=== PATIENT | male | born 1980 ===

== ENCOUNTER 2022-02-12 01:06 | Emergency (ER) | payer SELFPAY ==
[~2022-02-12] VITALS: Ht 167.6 cm; Wt 65.8 kg
[2022-02-12 02:36] LABS: Influenza A, PCR NEGATIVE (NEGATIVE); Influenza B, PCR NEGATIVE (NEGATIVE); Resp Syncytial Virus, PCR NEGATIVE (NEGATIVE); SARS-Cov-2 (COVID-19) PCR, MMC NEGATIVE (NEGATIVE)
[2022-02-12 05:02] LABS: BASOPHILS ABSOLUTE AUTO 0.11 K/mm3 (0.00-0.23); BASOPHILS PERCENT AUTO 1 % (0-2); EOSINOPHILS ABSOLUTE AUTO 0.12 K/mm3 (0.00-0.68); EOSINOPHILS PERCENT AUTO 1 % (0-6); Hematocrit 43.6 % (37.0-53.0); Hemoglobin 14.9 g/dL (13.5-17.5); IMMATURE GRAN ABSOLUTE AUTO 0.05 K/mm3 (0.00-0.10); IMMATURE GRAN PERCENT AUTO 0 % (0-1); LYMPHOCYTES ABSOLUTE AUTO 2.01 K/mm3 (0.84-5.20); LYMPHOCYTES PERCENT AUTO 16 % (21-46); MONOCYTES ABSOLUTE AUTO 1.09 K/mm3 (0.16-1.47); MONOCYTES PERCENT AUTO 9 % (4-13); Mean Corpuscular HGB 30.3 pg (26.0-34.0); Mean Corpuscular HGB Conc 34.2 g/dL (31.5-36.5); Mean Corpuscular Volume 89 fL (80-100); Mean Platelet Volume 10.6 fL (9.1-12.4); NEUTROPHILS ABSOLUTE AUTO 9.14 K/mm3 (1.96-9.15); NEUTROPHILS PERCENT AUTO 73 % (41-73); Platelet Count 192 K/mm3 (150-400); RDW Coefficient Variation 13.7 % (11.7-14.2); RDW Standard Deviation 44.1 fL (35.1-46.3); Red Blood Cell Count 4.91 M/mm3 (4.30-5.90); White Blood Cell Count 12.52 K/mm3 (4.00-11.30)
[2022-02-12 05:29] LABS: Albumin, Blood 2.9 g/dL (3.4-5.0); Albumin/Globulin Ratio 0.9 (0.8-1.8); Bilirubin, Total 2.2 mg/dL (0.1-1.0); Bun/Creatinine Ratio 17.1 (12.0-20.0); Creatinine, Blood 1.05 mg/dL (0.60-1.20); Globulin, Blood 3.1 g/dL (2.2-4.0); Potassium, Blood 4.6 mmol/L (3.5-5.5)
[2022-02-12] MEDS ORDERED: IBUP600 PO (05:49)
== END 2022-02-12 06:24 | disposition home or self-care (01) ==
LOC: ER 01:06
PROVIDERS: Student in an Organized Health Care Education/Training Program
DX: B34.9 Viral infection, unspecified (principal); R10.30 Lower abdominal pain, unspecified; D72.829 Elevated white blood cell count, unspecified; Z20.822 Contact with and (suspected) exposure to COVID-19
CPT/HCPCS: 0241U; 80053; 85025; A9270; J1885; J2405

== ENCOUNTER 2022-02-16 16:25 | Inpatient (IN) | payer OTHER ==
[~2022-02-16] VITALS: Ht 170.2 cm; Wt 79.1 kg
[~2022-02-16 16:25] MED LIST: IBUP600 PO
[2022-02-16 17:10] LABS: BASOPHILS ABSOLUTE AUTO 0.09 K/mm3 (0.00-0.23); BASOPHILS PERCENT AUTO 1 % (0-2); EOSINOPHILS ABSOLUTE AUTO 0.04 K/mm3 (0.00-0.68); EOSINOPHILS PERCENT AUTO 0 % (0-6); Hematocrit 46.4 % (37.0-53.0); Hemoglobin 15.9 g/dL (13.5-17.5); IMMATURE GRAN ABSOLUTE AUTO 0.05 K/mm3 (0.00-0.10); IMMATURE GRAN PERCENT AUTO 0 % (0-1); LYMPHOCYTES ABSOLUTE AUTO 1.04 K/mm3 (0.84-5.20); LYMPHOCYTES PERCENT AUTO 7 % (21-46); MONOCYTES PERCENT AUTO 7 % (4-13); Mean Corpuscular HGB 30.9 pg (26.0-34.0); Mean Corpuscular HGB Conc 34.3 g/dL (31.5-36.5); Mean Corpuscular Volume 90 fL (80-100); Mean Platelet Volume 10.5 fL (9.1-12.4); NEUTROPHILS ABSOLUTE AUTO 12.36 K/mm3 (1.96-9.15); NEUTROPHILS PERCENT AUTO 85 % (41-73); Platelet Count 221 K/mm3 (150-400); RDW Coefficient Variation 14.4 % (11.7-14.2); RDW Standard Deviation 47.2 fL (35.1-46.3); Red Blood Cell Count 5.15 M/mm3 (4.30-5.90); White Blood Cell Count 14.58 K/mm3 (4.00-11.30)
[2022-02-16 17:26] LABS: Source, Urine Clean Catch
[2022-02-16 17:30] LABS: Appearance, Urine Hazy (Clear); Blood, Urine 5+ (Neg); Color, Urine Brown (P-Yellow); Glucose Qualitative, Urine Neg (Neg); Ketones, Urine 2+ (Neg); Leukocyte Esterase, Urine 3+ (Neg); Nitrite, Urine Neg (Neg); Protein, Urine 3+ (Neg); Specific Gravity, Urine 1.025 (1.003-1.022); Urobilinogen, Urine 2+ (Normal)
[2022-02-16 17:40] LABS: Albumin, Blood 3.1 g/dL (3.4-5.0); Bilirubin, Total 3.1 mg/dL (0.1-1.0); Bun/Creatinine Ratio 19.6 (12.0-20.0); Calcium, Blood 8.8 mg/dL (8.5-10.1); Creatinine, Blood 1.07 mg/dL (0.60-1.20); Globulin, Blood 3.1 g/dL (2.2-4.0); Potassium, Blood 4.5 mmol/L (3.5-5.5); Total Protein, Blood 6.2 g/dL (6.4-8.2)
[2022-02-16 18:12] LABS: Bilirubin, Urine 1+ (Neg)
[2022-02-16 18:13] LABS: Bacteria Many /hpf; Granular Casts 0-2 /lpf (0); Mucus Light (0-Heavy); Red Blood Cells, Urine 25-50 /hpf (0-2); Squamous Epithelial Cells Rare /hpf (Few); White Blood Cells, Urine 25-50 /hpf (0-5)
--- NOTE | 2022-02-17 00:25 | NUR ---
RECEIVED REPORT FROM PEPITO DENG RN. PT ARRIVED TO 324 VIA GURNEY. PT TRANSFERRED SELF TO BED. ON 2L VIA SC. A/O. MOSTLY GERMAN SPEAKING, LIMITED NEPALI. PT ORIENTED TO CALL LT SYSTEM. BED ALARM ON FOR SAFETY. WILL CONTINUE TO PROVIDE CARE T/O SHIFT. CALL LT IN REACH.
[2022-02-17 00:26] LABS: U Amphetamine Screen DETECTED; U Barbituate Screen Not Detected; U Benzodiazapine Screen Not Detected; U Buprenorphine Screen Not Detected; U Cannabinoids Screen Not Detected; U Cocaine Screen Not Detected; U Methadone Screen Not Detected; U Methamphetamine Screen DETECTED; U Opiates Screen Not Detected; U Oxycodone Screen Not Detected; U Phencyclidine Screen Not Detected; U Propoxyphene Screen Not Detected
--- NOTE | 2022-02-17 00:45 | NUR ---
CIWA 0. PT DENIED SYMPTOMS.
[2022-02-17 02:19] LABS: BASOPHILS ABSOLUTE AUTO 0.07 K/mm3 (0.00-0.23); BASOPHILS PERCENT AUTO 1 % (0-2); EOSINOPHILS ABSOLUTE AUTO 0.02 K/mm3 (0.00-0.68); EOSINOPHILS PERCENT AUTO 0 % (0-6); Hematocrit 43.8 % (37.0-53.0); Hemoglobin 14.8 g/dL (13.5-17.5); IMMATURE GRAN ABSOLUTE AUTO 0.06 K/mm3 (0.00-0.10); IMMATURE GRAN PERCENT AUTO 0 % (0-1); LYMPHOCYTES ABSOLUTE AUTO 0.63 K/mm3 (0.84-5.20); LYMPHOCYTES PERCENT AUTO 4 % (21-46); MONOCYTES ABSOLUTE AUTO 1.04 K/mm3 (0.16-1.47); MONOCYTES PERCENT AUTO 7 % (4-13); Mean Corpuscular HGB 30.6 pg (26.0-34.0); Mean Corpuscular HGB Conc 33.8 g/dL (31.5-36.5); Mean Corpuscular Volume 91 fL (80-100); Mean Platelet Volume 10.3 fL (9.1-12.4); NEUTROPHILS ABSOLUTE AUTO 12.53 K/mm3 (1.96-9.15); NEUTROPHILS PERCENT AUTO 87 % (41-73); Platelet Count 194 K/mm3 (150-400); RDW Coefficient Variation 14.4 % (11.7-14.2); RDW Standard Deviation 46.8 fL (35.1-46.3); Red Blood Cell Count 4.84 M/mm3 (4.30-5.90); White Blood Cell Count 14.35 K/mm3 (4.00-11.30)
--- NOTE | 2022-02-17 02:34 | NUR ---
PT RESTING QUIETLY. RESP EVEN ON 2L. CALL LT IN REACH. BED ALARM ON FOR SAFETY.
[2022-02-17 02:39] LABS: Albumin, Blood 2.8 g/dL (3.4-5.0); Albumin/Globulin Ratio 0.9 (0.8-1.8); Bilirubin, Total 2.3 mg/dL (0.1-1.0); Bun/Creatinine Ratio 19.3 (12.0-20.0); Creatinine, Blood 0.98 mg/dL (0.60-1.20); Globulin, Blood 3.1 g/dL (2.2-4.0); Potassium, Blood 4.5 mmol/L (3.5-5.5); Total Protein, Blood 5.9 g/dL (6.4-8.2)
--- NOTE | 2022-02-17 03:52 | NUR ---
PT CONTINUES TO REST QUIETLY. LACTIC ACID IS 1.7. WILL CONTINUE TO PROVIDE CARE. CALL LT IN REACH.
--- NOTE | 2022-02-17 04:08 | NUR ---
SHIFT SUMMARY: ED ADMIT AT 0025. ALERT. MOSTLY CHINESE SPEAKING WITH VERY LIMITED PALESTINIAN. CURRENTLY ON 2L VIA NC. STACH AT 114 ON TELE. LACTIC ACID 1.7. NO COMPLAINTS OF PAIN OR SOB. PT RESTED WELL UPON ARRIVAL TO FLOOR. WILL CONTINUE TO PROVIDE CARE UNTIL SHIFT REPORT TO ONCOMING NURSE.
--- NOTE | 2022-02-17 06:08 | NUR ---
PT RESTING QUIETLY. CALL LT IN REACH.
--- NOTE | 2022-02-17 17:01 | NUR ---
SHIFT SUMMARY PT ECHO COMPLETED TODAY. IV FLUIDS DCED THIS SHIFT. PT TOLERATING PO INTAKE TODAY. USING URINAL AT BEDSIDE. SHOWERED TODAY. PT TELE REMAINS RUNNING SINUS TACH IN THE 110-120S T/O DAY. HR INCREASES WITH PAIN. PT IS PRIMARILY CUBAN SPEAKING AND OFTEN REFUSES PAIN OR NEEDS EVEN WITH A GRIMANCE ON FACE. PT AGREEABLE TO TAKING A DOSE A FENTANYL ONCE THIS SHIFT WITH GOOD RELIEF. PT CURRENTLY APPEARS TO BE SLEEPING IN HIS BED, FACE RELAXED. CALL LIGHT IN REACH.
--- NOTE | 2022-02-17 18:08 | NUR ---
PHYSICIAN CONTACT PT HR SUSTAINING IN THE 120S UP TO 130. DR. AQUINO NOTIFIED OF THIS INCREASE. NO NEW ORDERS AT THIS TIME.
--- NOTE | 2022-02-17 19:24 | NUR ---
RESTING QUIETLY. CALL LIGHT IN REACH
--- NOTE | 2022-02-17 19:46 | NUR ---
AWAKENED FOR ASSESSMENT. DENIES PAIN. HR ST AT 127. TELE CONSULTED. REPORTED THAT PT HAS BEEN ST INTO THE 130'S INTERMITTENTLY THROUGHOUT THE DAY, MD AWARE. WILL MONITOR. ASYMPTOMATIC. CALL LIGHT IN REACH
--- NOTE | 2022-02-18 00:04 | NUR ---
BAKED GOODS STOCK CLERK SUMMARY QUITE TIRED AT SHIFT COMMENCE. CIWA WAS 1 WITH INITIAL ASSESSMENT. DENIED PAIN AT THAT TIME. SPEAKS SOME MACEDONIAN. ANSWERS CORRESPONDED WITH QUESTIONS ASKED. MED TELE - ST IN 120'S - 130. AWARE PER AM RN, ASYMPTOMATIC. TELE REPORTED PT HAS HAD SIMILAR HR THROUGHOUT DAY. NEAR MIDNIGHT, PT AWAKE, VOICED ANXIETY. CIWA WAS 8, RECEIVED ATIVAN IV. 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 ABD PAIN SUBSIDED. CALL LIGHT IN REACH. WILL CONTINUE TO MONITOR.
--- NOTE | 2022-02-18 07:49 | NUR ---
DR PARISH PAGED PER ORDER FOR CONSULT. cONTINUE POC.
[2022-02-18 08:52] LABS: Hematocrit 46.7 % (37.0-53.0); Hemoglobin 15.1 g/dL (13.5-17.5); Mean Corpuscular HGB 29.7 pg (26.0-34.0); Mean Corpuscular HGB Conc 32.3 g/dL (31.5-36.5); Mean Corpuscular Volume 92 fL (80-100); Mean Platelet Volume 10.4 fL (9.1-12.4); Platelet Count 210 K/mm3 (150-400); RDW Coefficient Variation 14.6 % (11.7-14.2); RDW Standard Deviation 47.7 fL (35.1-46.3); Red Blood Cell Count 5.09 M/mm3 (4.30-5.90); White Blood Cell Count 14.17 K/mm3 (4.00-11.30)
--- NOTE | 2022-02-18 09:28 | NUR ---
ATIVAN 2MG RECEIVED REPORT FROM NOC RN. COULD HEAR PT MOANING AND SEE HIM THRASHING. LOOKING VERY FRETFUL. HE TYPED ON A TRANSLATION NELSON., THAT HE FELT DESPAIR AND WHATEVER WE ARE GIVING HIM ISN'T WORKING. DID A MEDICATION REVIEW OF LIBRIUM AND ATIVAN. PT HAD NOT RECENTLY RECEIVED WITHDRAWEL COVERAGE. ASSESSED PT, USING CIWA SCALE, TO BE A 19. MEDICATED WITH ATIVAN 2MG IV X1. PT SLOWLY CALMED AND FELL ASLEEP. CHECKED ON HIM AT 830-STILL SLEEPING. MEDCAITED WITH MORNING MEDCIATIONS AT 0930. WAS ABLE TO AROUSE PT. HE STATED HE FELT "BETTER." AND SMILED. HE THEN LAYED BACK DOWN TO REST. WILL CONTINUE TO MONITOR.
[2022-02-18 09:48] LABS: Creatinine, Blood 1.07 mg/dL (0.60-1.20); Potassium, Blood 3.9 mmol/L (3.5-5.5)
--- NOTE | 2022-02-18 10:35 | NUR ---
REPORT VT CALLED DR AQUINO ABOUT 6 BEAT RUN OF VT. VSS. PT AWAKE AND ALERT. NO ORDERS. CONTINUE POC.
--- NOTE | 2022-02-18 12:51 | NUR ---
DR BOO HADDAD AT BEDSIDE. ORDERED EKG COMPLETED. PT SITTING UP EATING LUNCH. NO MOANING, GRUMBLING. CONTINUE POC.
--- NOTE | 2022-02-18 16:36 | NUR ---
SHIFT NOTE PT ALERT. WALKS TO BATHROOM AD FARNAZ. SITS ON THE SIDE OF THE BED TO EAT/DRINK. OCCASIONALLY CRIES/MOANS. DENIES DISCOMFORT. H/L PATENT. HE REFUSES TO USE THE INTERPRETOR PHONE. THE PHONE IS AT BEDSIDE. TELE ON. ST WITH FREQUENT PVC, 1 REPORTED RUN OF VT TODAY. STARTED TOPROL TODAY. VSS. REFUSES TO WEAR OXYGEN. HE STUFFS IT DOWN ALONG THE MATTRESS. EKG DONE PER ORDER. TOLERATED W/C TO XRAY FOR 2V. SKIN DUSKY, CAP REFILL BRISK. PT TOLD DR PARISH THAT HE UNDERSTANDS MACANESE FINE. CONTINUE POC.
--- NOTE | 2022-02-18 23:30 | NUR ---
PT RESTING QUIETLY AT START OF SHIFT. VS TAKEN SHOWING LOW GRADE TEMP; TYLENOL GIVEN WITH GOOD EFFECT. PT NONCOMPLIANT WITH CARE, NOT WANTING TO TAKE MEDICATIONS. FREQUENTLY TAKING TELE MX OFF AND THROWING IT ON THE FLOOR. PT REFUSING TO ANS QUESTIONS OR ALLOW FULL ASSESSMENT. LUNGS T/O COARSE WITH SCATTERED EXP WHEEZES. INDEPENDENT TO BTHRM AND SHOWER THIS EVENING. DENIED FURTHER NEEDS. CALL LT IN REACH.
--- NOTE | 2022-02-19 04:36 | NUR ---
SHIFT SUMMARY: RESUMED CARE FOR THIS PT @ 0100. RESTING IN BED, NO CHANGES. WILL CONTINUE TO MONITOR AND REPORT TO DAY NURSE.
[2022-02-19 06:00] LABS: Magnesium, Blood 2.2 mg/dL (1.6-2.4)
[2022-02-19 06:05] LABS: Bun/Creatinine Ratio 15.7 (12.0-20.0); Calcium, Blood 8.1 mg/dL (8.5-10.1); Creatinine, Blood 1.02 mg/dL (0.60-1.20); Potassium, Blood 3.6 mmol/L (3.5-5.5)
[2022-02-19] MEDS ORDERED: ACET325 PO (12:13)
[2022-02-19] MEDS ORDERED: Lisinopril2.5 MG PO (12:13)
[2022-02-19] MEDS ORDERED: METO50ER PO (12:14)
[2022-02-19] MEDS ORDERED: CEPH500 PO (12:16)
[2022-02-19] MEDS ORDERED: SPIR25 PO (12:18)
--- NOTE | 2022-02-19 13:04 | NUR ---
DISCHARGE DISCUSSED, WITH HIS FRIENDS AT BEDSIDE, ABOUT HEART FAILURE. DISCUSSED CALLING [facility] FOR FOLLOW UP CARE. DISCUSSED WEIGHT DAILY AND WHAT TO DO. HE WAS ESCORTED OUT VIA W/C ACCOMPANIED BY RN. CONTINUE POC.
== END 2022-02-19 12:57 | disposition home or self-care (01) | DRG 871 ==
LOC: ER 16:25 → MEDS 23:55
PROVIDERS: Internal Medicine; Student in an Organized Health Care Education/Training Program; ADMIT Internal Medicine
DX: A41.9 Sepsis, unspecified organism (principal); I50.41 Acute combined systolic (congestive) and diastolic (congestive) heart failure; N10 Acute pyelonephritis; I42.0 Dilated cardiomyopathy; I42.7 Cardiomyopathy due to drug and external agent; I47.1 Supraventricular tachycardia; F10.239 Alcohol dependence with withdrawal, unspecified; I11.0 Hypertensive heart disease with heart failure; I27.20 Pulmonary hypertension, unspecified; N20.0 Calculus of kidney; F15.10 Other stimulant abuse, uncomplicated; R74.8 Abnormal levels of other serum enzymes; R94.5 Abnormal results of liver function studies; Z90.49 Acquired absence of other specified parts of digestive tract; Z98.890 Other specified postprocedural states; Z79.899 Other long term (current) drug therapy; Z71.51 Drug abuse counseling and surveillance of drug abuser
CPT/HCPCS: 36415; 71046; 74177; 80048; 80053; 81001; 83605; 83690; 83735; 83880; 84443; 84450; 84460; 84484; 85025; 85027; 87086; 93005; 93010; 94760; A9270; C8929; J0696; J1170; J1650; J1885; J1940; J2060; J3010; J7030; Q9957; Q9967

== ENCOUNTER 2022-03-01 03:15 | Inpatient (IN) | payer OTHER ==
[~2022-03-01] VITALS: Ht 167.6 cm; Wt 76.2 kg
[~2022-03-01 03:15] MED LIST changes: +ACET325 PO; +CEPH500 PO; +FURO20 PO; +LEVFLO500 PO; +Lisinopril2.5 MG PO; +METO50ER PO; +SPIR25 PO
[2022-03-01 03:36] LABS: BASOPHILS ABSOLUTE AUTO 0.11 K/mm3 (0.00-0.23); BASOPHILS PERCENT AUTO 1 % (0-2); EOSINOPHILS ABSOLUTE AUTO 0.22 K/mm3 (0.00-0.68); EOSINOPHILS PERCENT AUTO 2 % (0-6); Hematocrit 46.9 % (37.0-53.0); Hemoglobin 15.3 g/dL (13.5-17.5); IMMATURE GRAN ABSOLUTE AUTO 0.06 K/mm3 (0.00-0.10); IMMATURE GRAN PERCENT AUTO 1 % (0-1); LYMPHOCYTES ABSOLUTE AUTO 2.53 K/mm3 (0.84-5.20); LYMPHOCYTES PERCENT AUTO 21 % (21-46); MONOCYTES ABSOLUTE AUTO 0.94 K/mm3 (0.16-1.47); MONOCYTES PERCENT AUTO 8 % (4-13); Mean Corpuscular HGB 29.9 pg (26.0-34.0); Mean Corpuscular HGB Conc 32.6 g/dL (31.5-36.5); Mean Corpuscular Volume 92 fL (80-100); Mean Platelet Volume 10.1 fL (9.1-12.4); NEUTROPHILS PERCENT AUTO 68 % (41-73); Platelet Count 314 K/mm3 (150-400); RDW Coefficient Variation 14.6 % (11.7-14.2); RDW Standard Deviation 48.8 fL (35.1-46.3); Red Blood Cell Count 5.12 M/mm3 (4.30-5.90); White Blood Cell Count 12.06 K/mm3 (4.00-11.30)
[2022-03-01 03:48] LABS: Albumin/Globulin Ratio 0.9 (0.8-1.8); Bun/Creatinine Ratio 19.3 (12.0-20.0); Calcium, Blood 8.6 mg/dL (8.5-10.1); Creatinine, Blood 1.14 mg/dL (0.60-1.20); Globulin, Blood 3.3 g/dL (2.2-4.0); Total Protein, Blood 6.3 g/dL (6.4-8.2)
[2022-03-01 04:14] LABS: Influenza A, PCR NEGATIVE (NEGATIVE); Influenza B, PCR NEGATIVE (NEGATIVE); Resp Syncytial Virus, PCR NEGATIVE (NEGATIVE); SARS-Cov-2 (COVID-19) PCR, MMC NEGATIVE (NEGATIVE)
--- NOTE | 2022-03-01 07:35 | NUR ---
ADMISSION PT TRANSFERS SELF TO ICU BED. PT A&OX4. PRIMARY LANGUAGE IS KENYAN, MASTER CHEF PHONE USED TO GATHER MEDICAL HISTORY. PT VERBALIZES HE UNDERSTANDS WITHOUT THE MASTER CHEF PHONE. PT HAS NONPRODUCTIVE COUGH THAT HE HAS HAD "FOR AWHILE". HE DENIES PAIN AT THIS TIME. SINUS TACH ON MONITOR WITH RATE IN 110S-125. PT HAD 2 EPISODES OF EMESIS THAT WAS YELLOW/BILE COLORED. PT USES URINAL INDEPENDENTLY AND HAS PALE/CLEAR URINE. BED IN LOW POSITION, CALL LIGHT WITHIN REACH.
[2022-03-01 11:33] LABS: CPK Creatine Kinase 146 U/L (39-308)
--- NOTE | 2022-03-01 17:58 | NUR ---
SHIFT SUMMARY PT HAS SLEPT FOR MOST OF THE DAY. OCCASIONALLY GETS OUT OF BED INDEPENDENTLY TO USE THE RESTROOM. HE REMAINS A&OX4. LUNGS ARE CLEAR THROUGHOUT. PT CONTINUES TO HAVE NONPRODUCTIVE COUGH. PT ATE LUNCH AND DINNER. VSS THROUGHOUT SHIFT. BED IN LOW POSITION, CALL LIGHT WITHIN REACH. PT USES CALL LIGHT APPROPRIATELY AND VERBALIZES UNDERSTANDING OF CONVERSATION.
[2022-03-01 20:22] LABS: CPK Creatine Kinase 121 U/L (39-308)
[2022-03-02 03:45] LABS: BASOPHILS ABSOLUTE AUTO 0.12 K/mm3 (0.00-0.23); BASOPHILS PERCENT AUTO 1 % (0-2); EOSINOPHILS ABSOLUTE AUTO 0.21 K/mm3 (0.00-0.68); EOSINOPHILS PERCENT AUTO 2 % (0-6); Hematocrit 45.6 % (37.0-53.0); Hemoglobin 14.8 g/dL (13.5-17.5); IMMATURE GRAN ABSOLUTE AUTO 0.04 K/mm3 (0.00-0.10); IMMATURE GRAN PERCENT AUTO 0 % (0-1); LYMPHOCYTES ABSOLUTE AUTO 2.83 K/mm3 (0.84-5.20); LYMPHOCYTES PERCENT AUTO 28 % (21-46); MONOCYTES ABSOLUTE AUTO 0.87 K/mm3 (0.16-1.47); MONOCYTES PERCENT AUTO 9 % (4-13); Mean Corpuscular HGB 29.4 pg (26.0-34.0); Mean Corpuscular HGB Conc 32.5 g/dL (31.5-36.5); Mean Corpuscular Volume 91 fL (80-100); Mean Platelet Volume 10.2 fL (9.1-12.4); NEUTROPHILS ABSOLUTE AUTO 6.14 K/mm3 (1.96-9.15); NEUTROPHILS PERCENT AUTO 60 % (41-73); Platelet Count 303 K/mm3 (150-400); RDW Coefficient Variation 14.6 % (11.7-14.2); RDW Standard Deviation 47.7 fL (35.1-46.3); Red Blood Cell Count 5.03 M/mm3 (4.30-5.90); White Blood Cell Count 10.21 K/mm3 (4.00-11.30)
[2022-03-02 04:21] LABS: Albumin, Blood 3.1 g/dL (3.4-5.0); Albumin/Globulin Ratio 0.9 (0.8-1.8); Bilirubin, Total 1.8 mg/dL (0.1-1.0); Bun/Creatinine Ratio 21.5 (12.0-20.0); Calcium, Blood 8.5 mg/dL (8.5-10.1); Creatinine, Blood 1.21 mg/dL (0.60-1.20); Globulin, Blood 3.5 g/dL (2.2-4.0); Total Protein, Blood 6.6 g/dL (6.4-8.2)
--- NOTE | 2022-03-02 09:04 | NUR ---
ASSUMED CARE OF PT THIS AM PT. ALERT AND ORIENTED THIS AM, INDEPENDENT IN ROOM. PT. REPORTS PAIN TO LUQ WHEN COUGHING BUT DENIES ANY CHEST PAIN OR PAIN AT REST. PT. VSS THIS AM. CURRENTLY ON RA. OCCASIONAL HARSH DRY COUGH NOTED. PT. SALINE LOCKED. CALL LIGHT IN REACH.
--- NOTE | 2022-03-02 12:30 | NUR ---
UPDATE ROUNDED ON PT.PT SLEEPING MOST OF THE DAY, UP INDEPENDENTLY IN ROOM. CALL LIGHT IN REACH.
--- NOTE | 2022-03-02 17:51 | NUR ---
SHIFT SUMMARY PT. REMAINS ALERT AND ORIENTED T/O SHIFT. MED ONCE FOR NAUSEA WHICH HAPPENED SUDDENLY AFTER AWAKENING. PT. INDEPENDENT IN ROOM. VSS AT TIME. PLANS FOR LABS IN THE AM AND POSSIBLE D/C TO HOME TOMORROW PER DR. OSORIO. CALL LIGHT IN REACH. REPORT TO ONCOMING KIN
[2022-03-03 03:44] LABS: Anion Gap 9 mmol/L (6-16); Blood Urea Nitrogen 29 mg/dL (8-24); Bun/Creatinine Ratio 21.8 (12.0-20.0); CO2, Blood 24 mmol/L (21-32); Calcium, Blood 8.5 mg/dL (8.5-10.1); Chloride, Blood 105 mmol/L (98-108); Creatinine, Blood 1.33 mg/dL (0.60-1.20); Glomerular Filtration Rate 69 (60-); Glucose, Blood 99 mg/dL (70-99); Phosphorus, Blood 3.8 mg/dL (2.5-4.9); Potassium, Blood 4.5 mmol/L (3.5-5.5); Sodium, Blood 138 mmol/L (136-145)
--- NOTE | 2022-03-03 05:05 | NUR ---
END OF SHIFT SUMMARY NEURO: PRIMARILY COOK ISLANDER SPEAKING. A&OX4. PT DENIES NUMBNESS/TINGLING, HEADACHE OR VISION CHANGES OVERNIGHT. FULL SENSATION AND FULL STRENGTH IN ALL FOUR EXTREMITIES. RESPIRATORY: PT DENIES SOB/DYSPNEA. RA. SAT > 95%. APPRECIATED CLEAR BREATH SOUNDS BILATERALLY. INTERMITTENT DRY, UNPRODUCTIVE COUGH. CARDIAC: SINUS TACH WITH HR IN 110s. SBP REMAINED < 160 AND MAPS > 65. PT DENIES CHEST PAIN. GI/: CONTINENT OF BOWELS AND BLADDER. ONE BOUT OF NAUSEA AND VOMITING BROUGHT ON BY ABRUPT 9/10 PAIN. PT STATED PAIN RADIATED FROM GENITALS TO LOWER BACK AND SIMILAR TO PREVIOUS PAIN OUT OF HOSPITAL EXPERIENCED FROM KIDNEY STONES. RENAL US TAKEN AROUND MIDNIGHT AND PRN FENTANYL MANAGED PAIN. PT HAS SINCE URINATED AND NO BLOOD OR PAIN WAS REPORTED. MUSCULOSKELETAL: WNL. FULL STRENGTH. INDEPENDENT IN THE ROOM. INTEGUMENTARY: INTACT. PLAN: DISCHARGE TODAY.
--- NOTE | 2022-03-03 09:33 | NUR ---
SHIFT ASSESSMENT PT ALERT AND ORIENTED, FOLLOWING COMMANDS, TRANSFERING SELF TO BEDSIDE COMMODE WHEN NEEDED. PT DENIES CP OR SOB, DOES C/O OF MILD LOWER ABD PAIN WHICH PT HAS HAD FOR MANY DAYS. NO OTHER ACUTE CHANGES, POSSIBLE DISCHARGE HOME TODAY.
--- NOTE | 2022-03-03 10:30 | NUR ---
UPDATE PT WOKE AND BEGAN VOMITING, C/O 8/10 LOWER ABD PAIN, RENAL U/S SHOWED 1.7CM URINARY TRACT CALCULUS. MEDICATED WITH PRN FENTANYL AND ZOFRAN. WILL MONITOR CLOSELY.
--- NOTE | 2022-03-03 17:52 | NUR ---
SHIFT SUMMARY PT REMAINS ALERT AND ORIENTED, TOLERATING PO FLUIDS. NO MORE NAUSEA/ VOMITING SINCE PRIOR NOTE. PT DENYING LOWER ABD PAIN AT THIS TIME, HAS NOT REQUIRED MORE PAIN MEDS. VSS, SINUS TACH ON THE RECREATION ASSISTANT IN THE LOW 100'S. NO OTHER ACUTE CHANGES.
[2022-03-03 17:53] LABS: Source, Urine Clean Catch
[2022-03-03 18:05] LABS: Appearance, Urine Hazy (Clear); Bilirubin, Urine Neg (Neg); Blood, Urine 4+ (Neg); Color, Urine Yellow (P-Yellow); Glucose Qualitative, Urine Neg (Neg); Ketones, Urine Neg (Neg); Leukocyte Esterase, Urine 2+ (Neg); Nitrite, Urine Neg (Neg); Protein, Urine 2+ (Neg); Specific Gravity, Urine 1.025 (1.003-1.022); Urobilinogen, Urine 1+ (Normal)
[2022-03-03 18:45] LABS: White Blood Cells, Urine 25-50 /hpf (0-5)
[2022-03-03 18:46] LABS: Bacteria Many /hpf; Mucus Light (0-Heavy); Squamous Epithelial Cells Few /hpf (Few)
[2022-03-03 18:47] LABS: Renal Epithelial Rare /hpf (0-Rare)
[2022-03-04 04:05] LABS: Anion Gap 9 mmol/L (6-16); Blood Urea Nitrogen 31 mg/dL (8-24); Bun/Creatinine Ratio 22.1 (12.0-20.0); CO2, Blood 24 mmol/L (21-32); Calcium, Blood 8.6 mg/dL (8.5-10.1); Chloride, Blood 103 mmol/L (98-108); Glomerular Filtration Rate 65 (60-); Glucose, Blood 95 mg/dL (70-99); Magnesium, Blood 2.2 mg/dL (1.6-2.4); Phosphorus, Blood 3.6 mg/dL (2.5-4.9); Potassium, Blood 4.3 mmol/L (3.5-5.5); Sodium, Blood 136 mmol/L (136-145)
--- NOTE | 2022-03-04 06:19 | NUR ---
END OF SHIFT SUMMARY NEURO: PRIMARILY ICELANDIC SPEAKING. A&OX4. PT DENIES NUMBNESS/TINGLING, HEADACHE OR VISION CHANGES OVERNIGHT. FULL SENSATION AND FULL STRENGTH IN ALL FOUR EXTREMITIES. RESPIRATORY: PT DENIES SOB/DYSPNEA. RA. SAT > 95%. APPRECIATED CLEAR BREATH SOUNDS BILATERALLY. INTERMITTENT DRY, UNPRODUCTIVE COUGH. CARDIAC: SINUS TACH WITH HR IN 100s. NORMOTENSIVE OVERNIGHT. SBP <160 AND MAPS > 65. PT DENIES CHEST PAIN. GI/: CONTINENT OF BOWELS AND BLADDER. ONE BOUT OF NAUSEA AND VOMITING AT 0600. BLADDER SCANNED AT 0000 AND 0600, AMOUNT NEVER > 60 ML. PT ONLY PUT OUT 75 ML OF AGUILAR URINE OVERNIGHT. MUSCULOSKELETAL: WNL. FULL STRENGTH. INDEPENDENT IN THE ROOM. INTEGUMENTARY: INTACT.
--- NOTE | 2022-03-04 08:55 | NUR ---
ASSUMED CARE 0700 PATIENT ALERT AND ORIENTED. MOVING AROUND IN ROOM ON HIS OWN. HE DENIES PAIN OR NAUSEA. HE IS VOIDING INDEP. HOWEVER SCAN AMOUNTS. PATIENT ATE 100% OF BREAKFAST. HIS VS STABLE HOWEVER HE IS IN A SINUS TACH. RHYTHM LOW 100'S. NO TREMBLES OR SWEATING OCCURING. AFEBRILE TEMP 96. 7. PT HAS TWO PIV'S SALINE LOCKED. BRUISE TO LEFT FA. NO ACUTE CHANGES AT THIS TIME. DOES SPEAK BAR[place]IAN BUT ALSO SPEAKS SOME ZAMBIAN, CONVERSING WITH STAFF. DID GIVE HIM PAPERWORK FROM DIETITION ABOUT HIS HEART HEALTHY DIET, WHICH IS IN [place]. HE WAS APPRECIATIVE. WILL GIVE REPORT TO FLOOR RN TO ASSUME CARE.
[2022-03-04 11:40] LABS: Anion Gap 9 mmol/L (6-16); Blood Urea Nitrogen 28 mg/dL (8-24); Bun/Creatinine Ratio 20.1 (12.0-20.0); CO2, Blood 24 mmol/L (21-32); Calcium, Blood 8.4 mg/dL (8.5-10.1); Chloride, Blood 103 mmol/L (98-108); Creatinine, Blood 1.39 mg/dL (0.60-1.20); Glomerular Filtration Rate 65 (60-); Glucose, Blood 140 mg/dL (70-99); Phosphorus, Blood 3.3 mg/dL (2.5-4.9); Sodium, Blood 136 mmol/L (136-145)
--- NOTE | 2022-03-04 12:06 | NUR ---
TRANSFER NOTE PT TRANSFERRED FROM ICU TO ROOM. REPORT RECEIVED FROM KIN VALLADARES.
[2022-03-04] MEDS ORDERED: TAMS.4ER PO (13:18)
[2022-03-04] MEDS ORDERED: OMEP20ER PO (13:18)
--- NOTE | 2022-03-04 15:31 | NUR ---
DISCHARGE NOTE PT DISCHARGED TO HOME, A FRIEND CAME TO PICK HIM UP. BOTH OF HIS IV'S WERE REMOVED SUCCESSFULLY AND TELE REMOVED. HE WAS EDUCATED BY THE PROVIDER, POLICE GUARD AND NURSE. HIS MEDICATIONS WERE SENT TO [facility]. HIS PERSONAL BELONGINGS WERE RETURNED TO HIM.
== END 2022-03-04 15:24 | disposition home or self-care (01) | DRG 917 ==
LOC: ER 03:15 → PCU 06:39 → MEDS 06:39 → ICUW 07:31 → MEDS 03-04 09:27
PROVIDERS: Internal Medicine; Student in an Organized Health Care Education/Training Program; ADMIT Internal Medicine
PROC: 5A09357 Assistance with Respiratory Ventilation, Less than 24 Consecutive Hours, Continuous Positive Airway Pressure (ICD-10-PCS; principal; 2022-03-01)
DX: T43.651A Poisoning by methamphetamines accidental (unintentional), initial encounter (principal); I50.21 Acute systolic (congestive) heart failure; I47.20 Ventricular tachycardia, unspecified; N17.9 Acute kidney failure, unspecified; I42.8 Other cardiomyopathies; I11.0 Hypertensive heart disease with heart failure; F15.10 Other stimulant abuse, uncomplicated; R74.01 Elevation of levels of liver transaminase levels; N20.0 Calculus of kidney; I27.20 Pulmonary hypertension, unspecified; F10.20 Alcohol dependence, uncomplicated; F17.210 Nicotine dependence, cigarettes, uncomplicated; Z20.822 Contact with and (suspected) exposure to COVID-19; Z88.8 Allergy status to other drugs, medicaments and biological substances; Z79.899 Other long term (current) drug therapy; Z79.811 Long term (current) use of aromatase inhibitors; Z79.01 Long term (current) use of anticoagulants; Z91.14 Patient's other noncompliance with medication regimen; Z79.2 Long term (current) use of antibiotics; Z90.49 Acquired absence of other specified parts of digestive tract; Z98.890 Other specified postprocedural states; Z87.440 Personal history of urinary (tract) infections
CPT/HCPCS: 0241U; 36415; 71046; 71260; 76770; 80053; 80069; 81001; 82550; 83735; 83880; 84484; 85025; 85379; 87086; 93005; 93010; 94640; 94664; 94760; 96374-59; 99285-25; A9270; J1650; J1940; J2405; J3010; J7030; Q9967